=== PATIENT | female | born 1985 | race Two or more races ===

== ENCOUNTER 2023-12-30 14:27 | Inpatient (IN) | payer OTHER ==
[~2023-12-30] VITALS: Ht 162.6 cm; Wt 82.6 kg
[~2023-12-30 14:27] MED LIST: ATORVASTATIN CA20 MG PO; GRALISE600 MG PO; METFORMIN HCL500 M3 PO; ZESTRIL20 MG PO
[2024-01-06] MEDS ORDERED: CEFAZOLIN SODIUM 1,000 MG VIAL ONE (08:43)
[2024-01-06] MEDS ORDERED: POVIDONE-IODINE 118 ML BOTT TOP ONE ×2 (09:14→10:45)
[2024-01-06] MEDS ORDERED: CHLORHEXIDINE GLUCONATE 120 ML BOTTLE TOP ONE ×2 (09:14→10:45)
[2024-01-06] MEDS ORDERED: CEFAZOLIN SODIUM 1,000 MG VIAL IV ONE (11:00)
[2024-01-06] MEDS ORDERED: HEMOSTATIC MATRIX 1 KIT KIT TOP ONE ×2 (11:31→12:00)
[2024-01-06] MEDS ORDERED: SURGIFLO APPLICATOR 1 EACH APPL TOP ONE ×2 (11:31→12:00)
[2024-01-06] MEDS ORDERED: METRONIDAZOLE/SODIUM CHLORIDE 500 MG/100 ML PIGGYBACK IV ONE ×2 (11:45→12:00)
[2024-01-06] MEDS ORDERED: BUPIVACAINE HCL/Mpf 0.5% 10ML VIAL ONE (12:29)
[2024-01-06] MEDS ORDERED: RINGERS SOLUTION,LACTATED 1,000 ML IV SCH (12:45)
[2024-01-06] MEDS ORDERED: MORPHINE SULFATE 4 MG/ML CARTRIDGE IV PRN (12:45)
[2024-01-06] MEDS ORDERED: SIMETHICONE 125 MG CAPSULE PO SCH (13:00)
[2024-01-06] MEDS ORDERED: ONDANSETRON HCL 2 MG/ML VIAL ONE (13:22)
[2024-01-06] MEDS ORDERED: MORPHINE SULFATE 4 MG/ML VIAL IV ONE ×2 (13:30→14:00)
[2024-01-06] MEDS ORDERED: BUPIVACAINE HCL 30 ML VIAL IJ ONE (13:30)
[2024-01-06] MEDS ORDERED: KETOROLAC TROMETHAMINE 30 MG VIAL IV ONE (14:45)
[2024-01-06] MEDS ORDERED: METOCLOPRAMIDE HCL 5 MG/ML VIAL ONE (16:47)
[2024-01-06] MEDS ORDERED: CEFOXITIN SODIUM 2,000 MG VIAL IV ONE (16:47)
[2024-01-06] MEDS ORDERED: KETOROLAC TROMETHAMINE 30 MG VIAL ONE (16:47)
[2024-01-06] MEDS ORDERED: KETOROLAC TROMETHAMINE 30 MG VIAL IV SCH (17:00)
[2024-01-06] MEDS ORDERED: CEFOXITIN SODIUM 2,000 MG VIAL IV SCH (17:00)
[2024-01-06] MEDS ORDERED: METOCLOPRAMIDE HCL 5 MG/ML VIAL IV SCH (17:00)
[2024-01-06] MEDS ORDERED: INSULIN LISPRO 1,000 UNIT/10 ML UNITS SUBCUTANEO PRN (17:45)
[2024-01-06] MEDS ORDERED: DEXTROSE 50 % IN WATER 0.5 G/ML DISP.SYRIN IV PRN (17:45)
[2024-01-06] MEDS ORDERED: ENALAPRILAT DIHYDRATE 1.25 MG/ML VIAL IV PRN (17:45)
[2024-01-06] MEDS ORDERED: FAMOTIDINE/PF 20 MG/2 ML VIAL ONE (20:34)
[2024-01-06] MEDS ORDERED: DOCUSATE SODIUM 100MG CAP PO SCH (21:00)
[2024-01-06] MEDS ORDERED: FAMOTIDINE/PF 20 MG/2 ML VIAL IV SCH (21:00)
[2024-01-06 21:06] LABS: HEMATOCRIT 33.8 % (36.0-45.00); HEMOGLOBIN 11.4 g/dL (12.0-15.00); MEAN CELL VOLUME 86.7 fL (80.00-100.00); MEAN CORPUSCULAR HEMOGLOBIN 29.3 pg (27.00-32.0); MEAN CORPUSCULAR HGB CONC 33.8 g/dl (32.0-36.0); PLATELET COUNT 302 K/uL (150-450)
[2024-01-06 21:33] LABS: CALCIUM 8.7 mg/dL (8.5-10.1); CREATININE SERUM 0.67 mg/dL (0.55-1.02); GFR 97.99; POTASSIUM 4.56 mEq/L (3.5-5.1)
[2024-01-06 22:12] VITALS: BP 103/66
[2024-01-07] VITALS: BP 101/65
[2024-01-07 02:24] LABS: HEMATOCRIT 32.2 % (36.0-45.00); MEAN CELL VOLUME 85.9 fL (80.00-100.00); MEAN CORPUSCULAR HEMOGLOBIN 29.4 pg (27.00-32.0); MEAN CORPUSCULAR HGB CONC 34.3 g/dl (32.0-36.0); PLATELET COUNT 276 K/uL (150-450); RED BLOOD COUNT 3.74 M/uL (4.00-6.00); RED CELL DISTRIBUTION WIDTH 13.2 % (11.5-14.5)
[2024-01-07 02:43] LABS: CALCIUM 8.7 mg/dL (8.5-10.1); CREATININE SERUM 0.69 mg/dL (0.55-1.02); GFR 94.72; POTASSIUM 4.62 mEq/L (3.5-5.1)
[2024-01-07 08:00] VITALS: BP 117/79
[2024-01-07] MEDS ORDERED: ENOXAPARIN SODIUM 40 MG/0.4 ML SYRINGE SUBCUTANEO SCH (09:00)
[2024-01-07] MEDS ORDERED: LISINOPRIL 20 MG TABLET PO SCH (09:00)
[2024-01-07] MEDS ORDERED: OxyCODONE HCL/APAP UD (PERCOCET) PO PRN (11:00)
[2024-01-07] MEDS ORDERED: KETOROLAC TROMETHAMINE 30 MG VIAL IV SCH (14:00)
[2024-01-07] MEDS ORDERED: ATORVASTATIN CALCIUM 20 MG TABLET PO SCH (17:00)
[2024-01-07 17:20] VITALS: BP 115/77
[2024-01-07] MEDS ORDERED: GABAPENTIN 300 MG CAPSULE PO SCH (21:00)
[2024-01-07 23:47] VITALS: BP 99/66
[2024-01-08 09:10] VITALS: BP 127/81
== END 2024-01-08 12:16 | disposition home or self-care (01) | DRG 743 ==
LOC: O/R 01-06 05:35 → OB/GYN 01-06 09:30
PROVIDERS: ADMIT Obstetrics & Gynecology; ATTEND Obstetrics & Gynecology
PROC: 0DNW4ZZ Release Peritoneum, Percutaneous Endoscopic Approach (ICD-10-PCS; 2024-01-06)
PROC: 0UN04ZZ Release Right Ovary, Percutaneous Endoscopic Approach (ICD-10-PCS; 2024-01-06)
PROC: 0UN74ZZ Release Bilateral Fallopian Tubes, Percutaneous Endoscopic Approach (ICD-10-PCS; 2024-01-06)
PROC: 0UT94ZZ Resection of Uterus, Percutaneous Endoscopic Approach (ICD-10-PCS; principal; 2024-01-06 09:30)
DX: N80.03 Adenomyosis of the uterus (principal); D27.0 Benign neoplasm of right ovary; Z20.822 Contact with and (suspected) exposure to COVID-19; N80.399 Endometriosis of the pelvic peritoneum, other specified sites, unspecified depth; E11.40 Type 2 diabetes mellitus with diabetic neuropathy, unspecified; Z79.4 Long term (current) use of insulin; F17.200 Nicotine dependence, unspecified, uncomplicated

== ENCOUNTER 2024-01-24 21:54 | Inpatient (IN) | payer OTHER ==
[~2024-01-24] VITALS: Ht 157.5 cm; Wt 82.6 kg
--- NOTE | 2024-01-24 22:06 | NUR ---
PTE ALERTA Y ORIENTADA X3 REFEIRE SER PACIENTE DE LA DRA. ALEE SINCLAIR Y DR. CHING ARNDT. NOTIFICA NALINI SIDO OPERADA PARA HISTERCTOMIA PARCIAL EL . NOTIFICA TAMBIEN SANGRADO VAGINAL CON PRESENCIA DE COAGULOS. SE MIDEN SV Y SE UBICA.
[2024-01-24] MEDS ORDERED: RINGERS SOLUTION,LACTATED 1,000 ML IV SCH (22:30)
--- NOTE | 2024-01-24 23:15 | NUR ---
SE RECIBE PACIENTE ALERTA Y ORIENTADA X3 LA CUAL AL MOMENTO SE ENCUENTRA EN CAMA EN POSICION SEMI SENTADA Y CON BARANDAS ELEVADAS. SE ENCUENTRA EN ESPERA DE ESTUDIO.
--- NOTE | 2024-01-24 23:19 | NUR ---
PACIENTE EVALUADA POR DR. WEINER QUIEN ORDE[place] MEDICO, SE EDUCA ACERCA DEL MISMO Y REFIERE ENTENDER. SE CANALIZA Y COLECTAN MUESTRAS DE LABORATORIO MEDIANTE MEDIDAS ASEPTICAS.
[2024-01-24 23:28] LABS: HEMATOCRIT 35.3 % (36.0-45.00); MEAN CELL VOLUME 85.5 fL (80.00-100.00); MEAN CORPUSCULAR HGB CONC 33.6 g/dl (32.0-36.0); PLATELET COUNT 398 K/uL (150-450); RED BLOOD COUNT 4.13 M/uL (4.00-6.00); RED CELL DISTRIBUTION WIDTH 12.7 % (11.5-14.5)
[2024-01-24 23:29] LABS: HEMOGLOBIN 11.9 g/dL (12.0-15.00); MEAN CORPUSCULAR HEMOGLOBIN 28.8 pg (27.00-32.0)
[2024-01-24 23:51] LABS: ALBUMIN 4.2 gm/dL (3.4-5.0); BILIRUBIN TOTAL 0.2 mg/dL (0.3-1.2); CALCIUM 10.2 mg/dL (8.5-10.1); CREATININE SERUM 0.76 mg/dL (0.55-1.02); GFR 84.72; GLOBULINA 4.5 G/DL (2.4-3.5); POTASSIUM 3.89 mEq/L (3.5-5.1); TOTAL PROTEIN 8.7 gm/dL (6.4-8.2)
[2024-01-25 00:08] LABS: PROTHROMBIN TIME 10.9 SECONDS (9.0-11.5)
[2024-01-25 05:23] LABS: HEMATOCRIT 34.1 % (36.0-45.00); MEAN CORPUSCULAR HGB CONC 34.9 g/dl (32.0-36.0); PLATELET COUNT 377 K/uL (150-450); RED BLOOD COUNT 4.01 M/uL (4.00-6.00); RED CELL DISTRIBUTION WIDTH 12.6 % (11.5-14.5)
[2024-01-25 05:35] LABS: HEMOGLOBIN 11.9 g/dL (12.0-15.00); MEAN CORPUSCULAR HEMOGLOBIN 29.6 pg (27.00-32.0)
--- NOTE | 2024-01-25 07:20 | NUR ---
SE RECIBE PTE ALERTA Y ORIENTADA X3 EN DEANGELO POSICION MAS BAJA CON BARANDAS ELEVADAS POR PRECAUCION. PTE CON UN ANGIO #18 EN LT BAJANDO UN RL @120MLS/HRS PATENTE RAEGAN DE EDEMA, ERITEMA Y SIGNOS DE INFECCION. SE MIDEN S/V, PENDIENTE CONSULTA CON .
[2024-01-25] MEDS ORDERED: METRONIDAZOLE/SODIUM CHLORIDE 100 ML IV SCH (09:00)
[2024-01-25] MEDS ORDERED: CEFAZOLIN SODIUM 1,000 MG VIAL IV SCH (09:00)
[2024-01-25] MEDS ORDERED: POVIDONE-IODINE 118 ML BOTT TOP ONE (18:15)
[2024-01-25] MEDS ORDERED: RINGERS SOLUTION,LACTATED 1,000 ML IV SCH (19:00)
[2024-01-25] MEDS ORDERED: KETOROLAC TROMETHAMINE 30 MG VIAL IV ONE (19:00)
[2024-01-25] MEDS ORDERED: OxyCODONE HCL 5 MG TABLET (ROXICODONE) PO PRN (19:00)
[2024-01-25 20:57] VITALS: BP 119/80
[2024-01-25] MEDS ORDERED: FAMOTIDINE/PF 20 MG/2 ML VIAL IV PUSH SCH (21:00)
[2024-01-25] MEDS ORDERED: DOCUSATE SODIUM 100MG CAP PO SCH (21:00)
[2024-01-25] MEDS ORDERED: SIMETHICONE 125 MG CAPSULE PO SCH (21:00)
[2024-01-25] MEDS ORDERED: GABAPENTIN 300 MG CAPSULE PO SCH (21:00)
[2024-01-25 21:19] VITALS: BP 119/80
[2024-01-25 22:01] LABS: HEMOGLOBIN 11.2 g/dL (12.0-15.00); MEAN CELL VOLUME 85.8 fL (80.00-100.00); MEAN CORPUSCULAR HEMOGLOBIN 29.1 pg (27.00-32.0); MEAN CORPUSCULAR HGB CONC 33.9 g/dl (32.0-36.0); PLATELET COUNT 339 K/uL (150-450); RED BLOOD COUNT 3.85 M/uL (4.00-6.00); RED CELL DISTRIBUTION WIDTH 12.6 % (11.5-14.5)
[2024-01-25 22:15] LABS: ALBUMIN 3.7 gm/dL (3.4-5.0); CALCIUM 9.2 mg/dL (8.5-10.1); CREATININE SERUM 0.63 mg/dL (0.55-1.02); GFR 105.2; PHOSPHOROUS 4.1 mg/dL (2.5-4.9); POTASSIUM 3.9 mEq/L (3.5-5.1)
[2024-01-26] MEDS ORDERED: ACETAMINOPHEN 500 MG GEL..CAP PO SCH
[2024-01-26] MEDS ORDERED: METOCLOPRAMIDE HCL 5 MG/ML VIAL IV SCH (01:00)
[2024-01-26] MEDS ORDERED: METRONIDAZOLE/SODIUM CHLORIDE 500 MG/100 ML PIGGYBACK IV SCH (01:00)
[2024-01-26] MEDS ORDERED: CEFAZOLIN SODIUM 1,000 MG VIAL IV SCH (01:00)
[2024-01-26 01:52] VITALS: BP 102/66; O2SAT 98
[2024-01-26] MEDS ORDERED: CELECOXIB 200 MG CAPSULE PO SCH (05:00)
[2024-01-26 06:16] LABS: HEMATOCRIT 30.1 % (36.0-45.00); HEMOGLOBIN 10.4 g/dL (12.0-15.00); MEAN CELL VOLUME 84.1 fL (80.00-100.00); MEAN CORPUSCULAR HEMOGLOBIN 29.1 pg (27.00-32.0); MEAN CORPUSCULAR HGB CONC 34.6 g/dl (32.0-36.0); PLATELET COUNT 315 K/uL (150-450); RED BLOOD COUNT 3.58 M/uL (4.00-6.00); RED CELL DISTRIBUTION WIDTH 12.8 % (11.5-14.5)
[2024-01-26 06:32] LABS: ALBUMIN 3.4 gm/dL (3.4-5.0); CALCIUM 9.2 mg/dL (8.5-10.1); CREATININE SERUM 0.68 mg/dL (0.55-1.02); GFR 96.32; PHOSPHOROUS 4.3 mg/dL (2.5-4.9); POTASSIUM 4.04 mEq/L (3.5-5.1)
[2024-01-26 08:55] VITALS: BP 121/73
[2024-01-26] MEDS ORDERED: POLYETHYLENE GLYCOL 3350 17 GM BLIST.PACK PO SCH (09:00)
== END 2024-01-26 12:28 | disposition home or self-care (01) | DRG 760 ==
LOC: ER 21:56 → SEC-K 01-25 09:04 → OB/GYN 01-25 09:04 → O/R 01-25 13:45 → SEC-K 01-25 13:46 → OB/GYN 01-25 19:39
PROVIDERS: General Practice; ADMIT Obstetrics & Gynecology; ATTEND Obstetrics & Gynecology
PROC: 0UQG7ZZ Repair Vagina, Via Natural or Artificial Opening (ICD-10-PCS; principal; 2024-01-25 17:00)
DX: N93.9 Abnormal uterine and vaginal bleeding, unspecified (principal); T81.31XA Disruption of external operation (surgical) wound, not elsewhere classified, initial encounter; Z20.822 Contact with and (suspected) exposure to COVID-19; Y65.8 Other specified misadventures during surgical and medical care